=== PATIENT | male | born 1940 | race Caucasian/White ===

== ENCOUNTER → 2017-09-12 20:00 | Outpatient (CLI) | payer MEDICARE, OTHER, SELFPAY | PROVIDERS: Family Provider Family Medicine; PCP Family Medicine; Visit Provider Nurse Practitioner Acute Care | DX: G47.33 Obstructive sleep apnea (adult) (pediatric) (principal) | CPT/HCPCS: 95811 ==

== ENCOUNTER → 2019-12-22 07:31 | Outpatient (CLI) | payer MEDICARE, OTHER, SELFPAY ==
--- NOTE | 2019-12-22 07:35 | CT_ITS ---
STUDY: CT SCAN LOWER EXTREMITY RIGHT REASON FOR EXAM: Male, 79 years old. RT KNEE, EL, OSTEOARTHRITIS, LT TKR, HX-MELANOMA RT ARM, PROSTATE CA, HTN RADIATION DOSAGE (If Supplied By Facility): CTDIvol = ( 18.14 ) mGy, DLP = ( 1083.7 ) mGycm. Individualized dose optimization techniques were used for this CT.? TECHNIQUE: Multiple axial tomographic images of the right hip, right knee and right ankle were obtained. Coronal and sagittal reconstruction was obtained as well. COMPARISON: None. FINDINGS: Mild degree of the joint space narrowing at the right hip joint. There is evidence of bony spur in the superior lateral aspect of the acetabulum. Subchondral geodes are seen in the superior lateral portion of the acetabulum. Mild degree of degenerative spur formation is seen along the superior and inferior aspects of the femoral head. Marked degree of joint space narrowing involving the medial compartment of the knee joint with degenerative spur formation along the medial femoral condyle as well as the medial tibial plateau. Tiny joint effusion. There is evidence of a 3.4 cm x 2.5 cm soft tissue density in the popliteal fossa. This most likely represents a popliteal cyst. There is evidence of a 1.7 cm x 0.7 cm cyst in the distal metaphysis of the femur. The ankle joint is unremarkable. The ankle mortise is symmetrical. CT/Extremity Lower without Contra IMPRESSION: Marked degree of joint space narrowing involving the medial compartment of the knee joint. Small joint effusion. Popliteal cyst. 1.7 cm x 0.7 cm cyst is seen in distal metaphysis of the femur. Electronically Signed: Lorenzo Fink, at 10:01 EDT , Service support ,
== END ==
PROVIDERS: PCP Family Medicine; Referring Provider Orthopaedic Surgery; Visit Provider Orthopaedic Surgery
DX: M17.11 Unilateral primary osteoarthritis, right knee (principal)
CPT/HCPCS: 73700

== ENCOUNTER 2020-02-05 07:48 | Observation (INO) | payer MEDICARE, OTHER, SELFPAY ==
--- NOTE | 2020-01-25 09:06 | EKG12_ITS ---
Test Reason : PRE OP Blood Pressure : / mmHG Vent. Rate : 070 BPM Atrial Rate : 070 BPM P-R Int : 258 ms QRS Dur : 080 ms QT Int : 392 ms P-R-T Axes : 019 -11 -08 degrees QTc Int : 423 ms Sinus rhythm with 1st degree A-V block Otherwise normal ECG Confirmed by YUSEF GALAN, BANDAR ([id number]), index editor RICK MARIE ([id number]) on 01/26/2020 10:19:28 AM Referred By: Erickson Judd Confirmed By:BANDAR HOLBROOK MD
[2020-01-25 09:25] LABS: Absolute Lymphocyte Count 1.57 X10^3/uL (0.83-4.51); Basophil# 0.04 X10^3/uL; Basophil% 0.5 % (0-1); Eosinophil# 0.36 X10^3/uL; Eosinophils% 4.7 % (0-5); Hematocrit 40.6 % (40-54); Hemoglobin 13.6 g/dL (13.0-16.5); Lymphocyte # 1.57 X10^3/ul (4.0); Lymphocyte % 20.6 % (19-41); Mean Corp Hgb Conc 33.5 g/dL (32-36); Mean Corpuscular Hgb 30.9 pg (27.0-32.0); Mean Corpuscular Volume 92.3 fL (80-94); Monocyte# 0.63 X10^3/uL; Monocyte% 8.3 % (0-10); NRBC Flagged by Analyzer 0 % (0-5); Neutrophil # 4.99 X10^3/uL (2.7-7.7); Neutrophil % 65.6 % (47-70); Platelet Count 234 K/mm3 (150-450); RBC Distribution Width CV 12.7 % (11.6-14.6); RBC Distribution Width SD 43.2 fl (35.1-43.9); White Blood Count 7.6 K/mm3 (4.4-11.0)
[2020-01-25 09:52] LABS: Anion Gap 7 (5-15); BUN 18 mg/dL (7-18); BUN/Creat Ratio 18.6 RATIO (10-20); Calcium,Total 9.1 mg/dL (8.5-10.1); Chloride 105 mmol/L (98-107); Creatinine, Serum 0.97 mg/dL (0.70-1.30); EST Glomerular Filtration Rate 80 mL/min (>60); Est Glom Filt Rate - Afr Amer 97 mL/min (>60); Glucose 119 mg/dL (74-106); Sodium Level 138 mmol/L (136-145)
[2020-01-25 09:54] LABS: Magnesium 1.7 mg/dL (1.6-2.6)
[2020-02-05] VITALS (14 sets, daily range): BP systolic 109–144; BP diastolic 62–88; PULSE 58–74; RESP 16–18; TEMP 35.6–36.9; O2SAT 95–100; BMI 32.3; BMI 31.9
[2020-02-05 06:26] LABS: Bedside Glucose 103 mg/dL (70-110)
[2020-02-05] MEDS: Acetaminophen 500 MG Tablet 1000 MG PO ×3 (06:30→21:25)
[2020-02-05] MEDS: Gabapentin 600 MG Tablet PO ×2 (06:30)
[2020-02-05] MEDS: Lactated Ringers 1,000 ML 100 ML IV (07:30)
--- NOTE | 2020-02-05 07:30 | KNEE_PTH ---
PATIENT: NIKITA OLIVA LOC: MS3 U#:[id number] AGE/SX: 79/M [place] [facility] [place]: Dr. Erickson Judd DO : 1940 BED: 1 DIS: 02/06/2020 SPEC #: [id number] RECD: 02/05/20 09:48 STATUS: BEAU RELizzie #: [id number] FRANKLIN: 02/05/20 07:[address]: Erickson Judd DEPT: SURGICAL PATHOLOGY RECD BY: Jessica Caicedo ENTERED: 02/05/20 11:05 SP TYPE: TOTAL KNEE OTHR DR: Brendon Scherer PA-C [facility] Tissues: Knee, NOS Procedures: Decalcification bone/plaque Surgery Specimen Level IV HEADER OPERATION: Total knee replacement robotic arm assist PRE-OP DIAGNOSIS: Right knee osteoarthritis TISSUE SUBMITTED: Bone and tissue right knee MICROSCOPIC DIAGNOSIS Bone and tissue, right knee, total knee replacement/resection: Pieces of bone with degenerative osteoarthritic changes. Fibroadipose tissue, fibroconnective tissue and reactive synovial tissue. SREE:stanley 02/09 MICROSCOPIC DESCRIPTION Slides are reviewed. GROSS DESCRIPTION Received is one container designated bone and soft tissue right knee. The specimen consists of multiple fragments of valerio-yellow bone measuring in aggregate 10 x 10 x 3 cm. Also in the specimen container is a piece of indurated tissue measuring 6 x 1 x 1 cm. A number of bony fragments contain articular surfaces consistent with tibial plateau and femoral condyle and displaying prominent osteophyte formation and bone erosion. Attached to one of the pieces of soft tissue is a piece of bone measuring 3.5 x 2 x 0.5 cm. Stenotype Operator sections are submitted in two cassettes as follows: 1 - soft tissue, 2 - bone after decalcification. / SREE:stanley 02/05/20 TC:5 CPT: 53294, 61809
--- NOTE | 2020-02-05 09:03 | OP.PCM_ITS ---
Report of Operation Date of Procedure: 02/05/20 Pre-Operative Diagnosis: OA right knee Post-Operative Diagnosis: same Surgery/Procedure Performed:: Right TKR metalizing machine operator automatic: Brendon Scherer Type of Anesthesia:: Spinal Anesthesiologist: Sam Leon Specimen's removed: bone - Admit VTE Documentation VTE Present on Admission: No VTE Mechan Device Prophylaxis: SCD's, Thigh High AYSE Hose VTE Pharm Prophylaxis ordered?: Yes
--- NOTE | 2020-02-05 10:00 | RAD_ITS ---
STUDY: X-RAY - RIGHT KNEE REASON FOR EXAM: Male, 79 years old. POST OP TECHNIQUE: 2 view(s) of the knee. COMPARISON: None. FINDINGS: Normal visualized distal femur. Normal visualized proximal tibia and fibula. Normal proximal tibiofibular articulation. The patient is status post total knee replacement. There is good alignment. Postoperative soft tissue changes. RAD/Knee 1 or 2 Views IMPRESSION: The patient is status post total knee replacement. There is good alignment. Postoperative soft tissue changes. Electronically Signed: Lorenzo Fink, at 10:33 EST , Service support ,
[2020-02-05] MEDS: Lactated Ringers 1,000 ML 125 ML IV ×2 (10:17→11:26)
[2020-02-05 10:23] LABS: Hematocrit 37.6 % (40-54); Hemoglobin 12.2 g/dL (13.0-16.5); Mean Corp Hgb Conc 32.4 g/dL (32-36); Mean Corpuscular Hgb 30.7 pg (27.0-32.0); Mean Corpuscular Volume 94.5 fL (80-94); Mean Platelet Vol. 9.3 fl (6.2-12.0); Platelet Count 235 K/mm3 (150-450); RBC Distribution Width CV 12.4 % (11.6-14.6); RBC Distribution Width SD 42.8 fl (35.1-43.9); Red Blood Count 3.98 M/mm3 (4.6-6.2); White Blood Count 6.4 K/mm3 (4.4-11.0)
[2020-02-05 10:34] LABS: Anion Gap 4 (5-15); BUN 13 mg/dL (7-18); Calcium,Total 8.6 mg/dL (8.5-10.1); Chloride 107 mmol/L (98-107); Creatinine, Serum 0.81 mg/dL (0.70-1.30); EST Glomerular Filtration Rate 98 mL/min (>60); Est Glom Filt Rate - Afr Amer 118 mL/min (>60); Estimated Creatinine Clearance 73.89 ml/min; Glucose 133 mg/dL (74-106); Potassium 4.1 mmol/L (3.5-5.1); Sodium Level 140 mmol/L (136-145)
[2020-02-05] MEDS: Calcium (Elemental) 500 MG Tablet PO (16:31)
[2020-02-05] MEDS: Aspirin 81 MG TAB.CHEW PO (16:31)
[2020-02-05] MEDS: oxyCODONE 5 MG Tablet PO (19:06)
[2020-02-05] MEDS: 0.9% Saline Lock 10 ML Syringe IV (19:57)
[2020-02-05] MEDS: Senna/Docusate Sodium 1 Tablet 2 TABLET PO (21:25)
[2020-02-05] MEDS: Atorvastatin Calcium 10 MG Tablet PO (21:25)
[2020-02-06 00:19] VITALS: BP 118/76; PULSE 85; RESP 16; TEMP 37.5; O2SAT 96
[2020-02-06] MEDS: 0.9% Saline Lock 10 ML Syringe IV (00:26)
[2020-02-06 04:39] VITALS: BP 131/69; PULSE 83; RESP 16; TEMP 37.4; O2SAT 98
[2020-02-06] MEDS: oxyCODONE 5 MG Tablet PO ×2 (05:48→12:28)
[2020-02-06] MEDS: Acetaminophen 500 MG Tablet 1000 MG PO (05:48)
[2020-02-06 07:39] LABS: Hematocrit 37.2 % (40-54); Hemoglobin 12.3 g/dL (13.0-16.5); Mean Corp Hgb Conc 33.1 g/dL (32-36); Mean Corpuscular Hgb 30.5 pg (27.0-32.0); Mean Corpuscular Volume 92.3 fL (80-94); Platelet Count 235 K/mm3 (150-450); RBC Distribution Width CV 12.5 % (11.6-14.6); RBC Distribution Width SD 42.5 fl (35.1-43.9); Red Blood Count 4.03 M/mm3 (4.6-6.2)
[2020-02-06 07:40] VITALS: O2SAT 97
[2020-02-06 07:43] LABS: Anion Gap 7 (5-15); BUN 16 mg/dL (7-18); BUN/Creat Ratio 20.9 RATIO (10-20); Calcium,Total 8.4 mg/dL (8.5-10.1); Chloride 101 mmol/L (98-107); Creatinine, Serum 0.77 mg/dL (0.70-1.30); EST Glomerular Filtration Rate 105 mL/min (>60); Est Glom Filt Rate - Afr Amer 127 mL/min (>60); Estimated Creatinine Clearance 57.84 ml/min; Glucose 120 mg/dL (74-106); Potassium 4.3 mmol/L (3.5-5.1); Sodium Level 133 mmol/L (136-145)
[2020-02-06 08:00] VITALS: BP 126/73; PULSE 76; RESP 16; TEMP 37; O2SAT 98
[2020-02-06] MEDS: Losartan Potassium 25 MG Tablet PO (08:06)
[2020-02-06] MEDS: Multivitamins,Therapeutic Tablet 1 TABLET PO (08:06)
[2020-02-06] MEDS: Calcium (Elemental) 500 MG Tablet PO (08:06)
[2020-02-06] MEDS: Aspirin 81 MG TAB.CHEW PO (08:07)
[2020-02-06] MEDS: Pantoprazole Sodium 20 MG Tablet PO (08:07)
--- NOTE | 2020-02-06 08:13 | PN.ORTHO_ITS ---
Subjective: Patient sitting at bedside eating breakfast. Patient states pain is been very well managed. Patient denies chest pain, shortness of breath, calf pain, nausea vomiting. Patient has no other complaints and is ready for discharge home. Objective: Dressings clean dry intact. Negative signs and symptoms of DVT. Vital signs and labs reviewed noted in the medical record. Patient is afebrile. Patient is neurovascular otherwise intact. Patient is in no respiratory distress speaking in full sentences. - Physical Exam Vitals/I&O's: Vital Signs Temp Pulse Resp BP Pulse Ox 99.3 F H 83 16 131/69 H 97 02/06/20 04:39 02/06/20 04:39 02/06/20 04:39 02/06/20 04:39 02/06/20 07:40 Oxygen Flow Rate (L/min) 6 Oxygen Delivery Method Room Air Weight: 92.533 kg Body Mass Index (BMI) 31.9 Intake and Output for Last 24 Hours 02/04/20 02/05/20 02/06/20 23:59 23:59 23:59 Intake Total 2927.17 / 3127.17 554 / 554 Output Total 650 / 650 Balance 2927.17 / 3127.17 -96 / -96 General: Alert, Oriented x3, Cooperative HEENT: PERRLA Oral: Moist Mucosa Neurological: Cranial nerves II-XII grossly intact Psych/Mental Status: Normal Affect Microbiology Past 72 Hours 02/04/20 09:45 Interface Orders - Final Laboratory Results 02/05/20 10:13: WBC 6.4, RBC 3.98 L, Hgb 12.2 L, Hct 37.6 L, MCV 94.5 H, MCH 30.7, MCHC 32.4, RDW Std Deviation 42.8, RDW Coeff of Perez 12.4, Plt Count 235, MPV 9.3 02/05/20 10:13: Sodium 140, Potassium 4.1, Chloride 107, Carbon Dioxide 29.0, Anion Gap 4 L, BUN 13, Creatinine 0.81, Estim Creat Clear Calc 73.89, Est GFR (MDRD) Af Amer 118, Est GFR (MDRD) Non-Af 98, BUN/Creatinine Ratio 16.0, Glucose 133 H, Calcium 8.6 02/06/20 06:16: WBC 8.0, RBC 4.03 L, Hgb 12.3 L, Hct 37.2 L, MCV 92.3, MCH 30.5, MCHC 33.1, RDW Std Deviation 42.5, RDW Coeff of Perez 12.5, Plt Count 235, MPV 10.0 02/06/20 06:16: Sodium 133 L, Potassium 4.3, Chloride 101, Carbon Dioxide 25.0, Anion Gap 7, BUN 16, Creatinine 0.77, Estim Creat Clear Calc 57.84, Est GFR (MDRD) Af Amer 127, Est GFR (MDRD) Non-Af 105, BUN/Creatinine Ratio 20.9 H, Glucose 120 H, Calcium 8.4 L Current Medications Acetaminophen (Acetaminophen 500 Mg Tablet) 1,000 mg PO Q8 [facility] Last Admin: 02/06/20 05:48 Dose: 1,000 mg Documented by: Aspirin (Aspirin 81 Mg Tab.Chew) [facility] Admin: 02/06/20 08:07 Dose: 81 mg Documented by: Atorvastatin Calcium (Atorvastatin Calcium 10 Mg Tablet) [facility] Admin: 02/05/20 21:25 Dose: 10 mg Documented by: Balsalazide (Balsalazide Disodium 750 Mg Capsule) 1,500 mg PO BID [facility] Calcium Carbonate (Calcium (Elemental) 500 Mg Tablet) [facility] Last Admin: 02/06/20 08:06 Dose: 500 mg Documented by: Insulin Human Lispro (Insulin Lispro 100 Unit/Ml Insuln.Pen) 1 - 6 unit SC Q4H PRN PRN; Protocol PRN Reason: BG>/= 180, SEE PROTOCOL Losartan Potassium (Losartan Potassium 25 Mg Tablet) 25 mg PO DAILY [facility] Last Admin: 02/06/20 08:06 Dose: 25 mg Documented by: Multivitamins (Multivitamins,Therapeutic Tablet) [facility] Last Admin: 02/06/20 08:06 Dose: 1 tablet Documented by: Ondansetron HCl (Ondansetron 4 Mg/2 Ml Vial) 4 mg IV Q8H PRN PRN PRN Reason: NAUSEA Oxycodone HCl (Oxycodone 5 Mg Tablet) 5 - 10 mg PO Q4H PRN PRN PRN Reason: Pain Score 4-10 Last Admin: 02/06/20 05:48 Dose: 10 mg Documented by: Pantoprazole Sodium (Pantoprazole Sodium 20 Mg Tablet) 20 mg PO DAILY [facility] Last Admin: 02/06/20 08:07 Dose: 20 mg Documented by: Promethazine HCl (Promethazine 25 Mg/Ml Syringe) 12.5 mg IM Q6H PRN PRN; Protocol PRN Reason: NAUSEA/VOMITING Senna/Docusate Sodium (Senna/Docusate Sodium 1 Tablet) 2 tablet PO BID [facility] Last Admin: 02/06/20 08:10 Dose: Not Given Documented by: Sodium Chloride (0.9% Saline Lock 10 Ml Syringe) 10 - 40 ml IV UD PRN PRN Reason: SALINE FLUSH Last Admin: 02/06/20 00:26 Dose: 10 ml Documented by: Medical Necessity - Tobacco Use Smoking Status: Former smoker Tobacco Use: Non-smoker Assessment/Plan Status post right total knee arthroplasty Plan 1. Continue all pain medications as prescribed 2. Continue physical therapy today, weight-bear as tolerated with walker 3. Aspirin 81 mg 1 p.o. every 12 hours for 30 days for postop DVT prophylaxis 4. Encourage incentive spirometry 5. Patient will continue outpatient physical therapy at [facility] 6. Patient will follow up with Dr. Judd as scheduled, see pink sheet 7. Discharge home today after p.m. therapy
--- NOTE | 2020-02-06 08:19 | DCINST_ITS ---
Discharge Diet: No Restrictions Discharge Activity: May Not Drive, May Shower, Use Walker May shower in (days): 3 Ice area for (Minutes): 20 - each hour while awake. Weight Bearing Status: Weight bearing as tolerated Elevate: Operative Extremity Additional Activity Instructions:: Wear elastic stockings for 2 weeks after your surgery. Call your doctor if your incision/area has: Continuous Slow Oozing, Sudden Increased Bleeding, Increased Pain/ Swelling, Increased Redness, Foul Smelling Discharge Call your doctor if you observe: Fever of 101 or Higher, Coldness, Increased Pain - in extremity, Numbness or Tingling, Change in Color, Calf discomfort, Uncontrolled pain Change Dressing in (Days):: 0 - and daily as needed. Remove Dressing in (days):: 8 Cleanse incision/area with: Soap & Water Allergies/Adverse Reactions: Allergies bacitracin Allergy (Verified 02/05/20 06:22) Hives Penicillins Allergy (Verified 02/05/20 06:22) Nausea/Vom/Diarrhea Medications to take at Discharge Omeprazole [Prilosec] 20 mg PO DAILY 10/26/13 balsalazide 750 mg capsule 1,500 mg PO BID 05/25/17 calcium carbonate 500 mg calcium (1,250 mg) tablet 500 mg PO BID tab 05/25/17 losartan 25 mg tablet 25 mg PO QDAY 05/25/17 multivitamin 1 tab PO QDAY 05/25/17 simvastatin 20 mg tablet 20 mg PO QPM 05/25/17 Acetaminophen [Tylenol] 1,000 mg PO Q8 #90 tab 02/06/20 Aspirin [Aspirin, Baby] 81 mg PO BIDCM #60 tab.chew 02/06/20 Oxycodone [Oxyir] 5 - 10 mg PO Q4H PRN PRN 7 Days #84 tablet 02/06/20 Senna/Docusate Sodium [Senokot-S] 2 tablet PO BID tablet 02/06/20 The following prescriptions were given: Aspirin [Aspirin, Baby] 81 mg PO BIDCM #60 tab.chew Transmission Status: Pending to [facility] Oxycodone [Oxyir] 5 - 10 mg PO Q4H PRN PRN 7 Days #84 tablet PRN Reason: Pain Score 4-10 Transmission Status: Sent to [facility] Acetaminophen [Tylenol] 1,000 mg PO Q8 #90 tab Transmission Status: Pending to [facility] Care Physician: [facility] [Primary Care Provider] - Test Results: Test results from this visit will be discussed in further detail at your follow- up appointment, if applicable. Please Follow Up With: Erickson Judd, DO When: as scheduled( see pink sheet)
[2020-02-06] MEDS: BALSALAZIDE DISODIUM 750 MG CAPSULE 1500 MG PO (10:23)
[2020-02-06 13:25] VITALS: BP 135/80; PULSE 67; RESP 16; TEMP 37.2; O2SAT 96
== END 2020-02-06 13:34 | disposition home or self-care (01) ==
LOC: SDC 08:11 → MS3 08:11
PROVIDERS: Anesthesiology; Admitting Provider Orthopaedic Surgery; Referring Provider Orthopaedic Surgery; Visit Provider Orthopaedic Surgery
PROC: 0SRC0JZ Replacement of Right Knee Joint with Synthetic Substitute, Open Approach (ICD-10-PCS; CPT 27447; principal; 2020-02-05 07:00)
DX: M17.11 Unilateral primary osteoarthritis, right knee (principal); G47.30 Sleep apnea, unspecified; E78.00 Pure hypercholesterolemia, unspecified; I10 Essential (primary) hypertension; K21.9 Gastro-esophageal reflux disease without esophagitis; Z20.828 Contact with and (suspected) exposure to other viral communicable diseases; Z87.891 Personal history of nicotine dependence; Z79.899 Other long term (current) drug therapy; Z79.82 Long term (current) use of aspirin; Z85.820 Personal history of malignant melanoma of skin; Z85.46 Personal history of malignant neoplasm of prostate
CPT/HCPCS: 01400; 27447; 64447; S2900; 36415; 73560; 80048; 82962; 83735; 85025; 85027; 87077; 87081; 87426; 87635; 88305; 88311; 93005; 94762; 96361; 96365; 96366; 97116; 97162; 97166; 97535; 99218; 99251; C1776; C9803; J7120; A4216; G0378; G0379; G0463; U0003

== ENCOUNTER → 2020-11-16 09:57 | Outpatient (CLI) | payer MEDICARE, OTHER, SELFPAY ==
[2020-02-05 11:31] VITALS: BMI 31.9
[2020-11-16 12:48] LABS: Erythrocyte Sedimentation Rate 32 mm/hr (0-20)
[2020-11-16 12:51] LABS: Hematocrit 40.7 % (40-54); Hemoglobin 13.6 g/dL (13.0-16.5); Mean Corp Hgb Conc 33.4 g/dL (32-36); Mean Corpuscular Hgb 30.7 pg (27.0-32.0); Mean Corpuscular Volume 91.9 fL (80-94); Mean Platelet Vol. 9.5 fl (6.2-12.0); Platelet Count 331 K/mm3 (150-450); RBC Distribution Width CV 12.7 % (11.6-14.6); RBC Distribution Width SD 42.7 fl (35.1-43.9); Red Blood Count 4.43 M/mm3 (4.6-6.2); White Blood Count 7.5 K/mm3 (4.4-11.0)
[2020-11-16 12:58] LABS: ALB/GLOB Ratio 0.7 RATIO (0.9-2.4); AST(SGOT) 20 U/L (15-37); Alanine Aminotransfer ALT/SGPT 28 U/L (16-61); Albumin, Serum 3.6 g/dL (3.2-5.0); Alkaline Phosphatase 79 U/L (45-117); Anion Gap 6 (5-15); BUN 13 mg/dL (7-18); BUN/Creat Ratio 18.4 RATIO (10-20); CRP 4.28 mg/L (0.0-3.0); Calcium,Total 9.6 mg/dL (8.5-10.1); Chloride 103 mmol/L (98-107); EST Glomerular Filtration Rate 115 mL/min (>60); Est Glom Filt Rate - Afr Amer 139 mL/min (>60); Globulin 4.9 g/dL (2.2-4.2); Glucose 82 mg/dL (74-106); Potassium 4.2 mmol/L (3.5-5.1); Protein, Total 8.5 g/dL (6.4-8.2); Sodium Level 136 mmol/L (136-145)
== END ==
PROVIDERS: Referring Provider Internal Medicine Gastroenterology; Visit Provider Internal Medicine Gastroenterology
DX: K51.90 Ulcerative colitis, unspecified, without complications (principal)
CPT/HCPCS: 36415; 80053; 85027; 85652; 86140

== ENCOUNTER → 2020-12-01 15:19 | Outpatient (CLI) | payer MEDICARE, OTHER, SELFPAY ==
[2020-12-02 10:17] LABS: Hepatitis B Surface Antigen Non-Reactive (Nonreactive)
== END ==
PROVIDERS: Referring Provider Internal Medicine Gastroenterology; Visit Provider Internal Medicine Gastroenterology
DX: K51.90 Ulcerative colitis, unspecified, without complications (principal)
CPT/HCPCS: 36415; 86480; 87340

== ENCOUNTER → 2020-12-06 10:31 | Outpatient (CLI) | payer MEDICARE, OTHER, SELFPAY ==
[2020-12-10 05:07] LABS: QNTFERON TB Mitogen Value > 10.00 IU/mL (.); QNTFERON TB Nil Value 0.03 IU/mL (.); QNTFERON TB1+ Ag Value 0.07 IU/mL (.); QNTFERON TB2+ Ag Value 0.14 IU/mL (.)
[2020-12-10 13:59] LABS: QNTIFERON TB Positive Criteria Negative (Negative)
== END ==
PROVIDERS: Referring Provider Internal Medicine Gastroenterology; Visit Provider Internal Medicine Gastroenterology
DX: K51.90 Ulcerative colitis, unspecified, without complications (principal)
CPT/HCPCS: 86480

== ENCOUNTER → 2022-06-26 | Outpatient (CLI) | payer MEDICARE, OTHER, SELFPAY ==
[2022-06-26 18:14] LABS: Hematocrit 38.2 % (40-54); Hemoglobin 12.5 g/dL (13.0-16.5); Mean Corp Hgb Conc 32.7 g/dL (32-36); Mean Corpuscular Hgb 29.8 pg (27.0-32.0); Mean Platelet Vol. 10.5 fl (6.2-12.0); Platelet Count 268 K/mm3 (150-450); RBC Distribution Width CV 13.5 % (11.6-14.6); RBC Distribution Width SD 44.7 fl (35.1-43.9); White Blood Count 7.1 K/mm3 (4.4-11.0)
[2022-06-26 18:26] LABS: Erythrocyte Sedimentation Rate 17 mm/hr (0-20)
[2022-06-26 19:04] LABS: ALB/GLOB Ratio 0.8 RATIO (0.9-2.4); AST(SGOT) 25 U/L (15-37); Alanine Aminotransfer ALT/SGPT 23 U/L (16-61); Albumin, Serum 3.5 g/dL (3.2-5.0); Alkaline Phosphatase 61 U/L (45-117); Anion Gap 7 (5-15); BUN 21 mg/dL (7-18); BUN/Creat Ratio 28.3 RATIO (10-20); CRP < 2.90 mg/L (0.0-3.0); Calcium,Total 9.6 mg/dL (8.5-10.1); Chloride 104 mmol/L (98-107); Creatinine, Serum 0.74 mg/dL (0.70-1.30); EST Glomerular Filtration Rate 108 mL/min (>60); Est Glom Filt Rate - Afr Amer 131 mL/min (>60); Globulin 4.5 g/dL (2.2-4.2); Glucose 120 mg/dL (74-106); Potassium 3.9 mmol/L (3.5-5.1); Sodium Level 137 mmol/L (136-145)
== END | disposition home or self-care (01) ==
LOC: MTLAB 15:15
PROVIDERS: Referring Provider Internal Medicine Gastroenterology; Visit Provider Internal Medicine Gastroenterology
DX: K51.90 Ulcerative colitis, unspecified, without complications (principal)
CPT/HCPCS: 36415; 80053; 85027; 85652; 86140

== ENCOUNTER → 2022-06-28 | Outpatient (CLI) | payer MEDICARE, OTHER, SELFPAY ==
--- NOTE | 2022-06-28 09:10 | RAD_ITS ---
STUDY: X-RAY - ESOPHAGUS (BARIUM SWALLOW) WITH FLUOROSCOPY REASON FOR EXAM: Male, 81 years old. DYSPHAGIA TECHNIQUE: 14 view(s) of the esophagus were obtained following swallowing of barium. FLUOROSCOPY TIME (if supplied): (22 seconds) minutes/seconds. 16.28 mGy COMPARISON: None. FINDINGS: There is no demonstrated esophageal foreign body. There is no demonstrated stricture or mucosal abnormality. Normal gastroesophageal junction, without a demonstrated hiatal hernia. The patient ingested a 12 mm tablet of barium without any difficulty. There is atherosclerotic tortuosity of the aortic arch and descending thoracic aorta. Normal visualized pulmonary parenchyma. There are diffuse degenerative changes of the visualized thoracic spine. RAD/Esophagus Dual Contrast IMPRESSION: Normal plain film x-ray examination (barium swallow) of the esophagus. Electronically Signed: Lorenzo Fink MD at 11:08 EDT ,
== END | disposition home or self-care (01) ==
LOC: RAD 09:02
PROVIDERS: Referring Provider Internal Medicine Gastroenterology; Visit Provider Internal Medicine Gastroenterology
DX: R13.10 Dysphagia, unspecified (principal)
CPT/HCPCS: 74221

== ENCOUNTER → 2023-05-08 | Outpatient (CLI) | payer MEDICARE, OTHER, SELFPAY ==
--- NOTE | 2023-05-08 09:59 | MRI_ITS ---
STUDY: MRI BRAIN WITH AND WITHOUT CONTRAST (ATTENTION INTERNAL AUDITORY CANALS - I.A.C.''s) REASON FOR EXAM: Male, 82 years old. Left tinnitus. Attention IACs. TECHNIQUE: Standardized multiplanar fat and water weighted pulse sequences were obtained. 20 mL of IV Clariscan. was administered for the contrast portion of the examination. COMPARISON: None. FINDINGS: Normal bilateral temporal bones. Normal bilateral internal auditory canals. There is no demonstrated intracanalicular or cisternal vestibular schwannoma ( acoustic neuroma ). There is no enhancement of the bilateral VIIth or VIIIth cranial nerves. Normal bilateral cochlea, vestibules and semicircular canals. Normal size of the ventricles and extra-axial spaces for the patient''s age. Few T2 FLAIR hyperintensity foci in the posterior periatrial white matter are chronic white matter ischemic changes. Normal bilateral basal ganglia. Normal thalami. Normal flow voids within the major intracranial circulation suggesting patency by spin echo criteria. Normal venous enhancement. There is no enhancing intra-axial or extra-axial abnormality. There is no extra-axial fluid accumulation. Normal sella turcica, pituitary gland, infundibular stalk, optic chiasm and hypothalamus. Normal tectal plate and pineal gland. Normal midbrain, willam and medulla. Normal cerebellum. Normal basal cisterns. No demonstrated orbital abnormality, within the constraints of a routine brain study. Mucus retention cyst in the right maxillary sinus. Mild mucosal thickening of the right ethmoid sinus. Normal remaining paranasal sinuses. Normal calvarium and skull base. Normal visualized soft tissue structures. Normal visualized upper cervical spine. MRI/Brain W/WO Contrast IMPRESSION: Few chronic white matter changes in the posterior periatrial white matter of cerebral hemispheres otherwise negative unenhanced and enhanced MRI of the bilateral internal auditory canals (I.A.C''s). COMMENT: If tinnitus is objective pulsatile tinnitus rather than subjective pulsatile tinnitus and dural AV fistula is a clinical consideration, cerebral arteriogram with bilateral external carotid arteriogram will be more helpful for further evaluation. Electronically Signed: Scott Foreman MD at 12:31 EST ,
[2023-05-08 10:47] LABS: CREATININE FINGERSTICK < 1.0 mg/dL (0.70-1.30); EGFR FINGERSTICK > 60.0000 mL/min (>60)
--- OUTSIDE RECORDS SUMMARY | 2023-05-08 12:01 | XMS RPT_ITS | CCD ---
Author Name Unknown Address [address] [place] [address] Organization [facility] Care Team Providers Care Taker Off Drying [employer] Name Role Phone DeFinis, Harumi Y Unavailable Unavailable Yenyis, Harumi Y Unavailable Unavailable CHARLEE Velarde, Radhika Fishman Unavailable Unavailbea Santillan RN, Anette A Unavailable Unavailable Jacque DESHPANDE, Anette A Unavailable Unavailable Prachi, CHARLEE, Radhika Fishman Unavailable Unavailabl andrew Siegel, Hui Unavailable Unavailable CHARLEE Velarde, Radhika Fishman Unavailable Unavailabl e Douglas, Harumi Y Unavailable Unavailable Daniel Siegeli Unavailable Unavailable Bong Stewart Unavailable Unavailable MD Pedro, Dixon Kaur Unavailable Prachi, CHARLEE, Radhika Fishman Unavailable UnavailAraseli Mir Unavailable Unavailable Araseli Roy Unavailable Unavailable DeFinis, Harumi Y Unavailable Unavailable Siegel, Hui Unavailable Unavailable Douglas, Harumi Y Unavailable Unavailable Daniella Quintanilla Primary Care Provider MARIA ISABEL CEDENO Attending Unavailable DANIELLA QUINTANILLA Primary Care Unavaila MARIA ISABEL Lares Referring Unavailable DANIELLA QUINTANILLA Primary Care Unavaila DANIELLA Cruz Primary Care Unavaila morgan Baxter MD, Laz Ruiz Primary Care Provider Allergies Allergy Classification Reported Allergen(s) Allergy Type Date of Onset Reaction(s) Facility (20 sources) bacitracin; Translations: [BACITRACIN] drug allergy 10-08-2013 Hives [facility] Work Phone: (17 sources) penicillin drug allergy 10-08-2013 [facility] Work Phone: (7 sources) Penicillins; Translations: [PENICILLINS] Drug [facility] Completed/Discontinued Medications Medication Drug Class(es) Dates Sig (Normalized) Sig (Original) aspirin 81 mg delayed release oral tablet (20 sources) Nonsteroidal Anti-inflammatory Drug Start: 05-25-2019 take 1 tablet by mouth once daily aspirin, enteric coated (ASPIRIN, ENTERIC COATED) 81 mg EC tablet Take 81 mg by mouth once daily. 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] Resolved: 09-19-2016 10-09-2013 Chronic Genitourinary symptoms and ill-defined conditions (1 source) Urinary incontinence; Translations: [Other specified urinary incontinence] Chronic Other nutritional; endocrine; and metabolic disorders (15 sources) Body mass index (BMI) 32.0-32.9, adult; Translations: [Body mass index (BMI) 32.0-32.9, adult] Onset: 09-20-2016 09-20-2016 Chronic Other upper respiratory infections (2 sources) Sore throat symptom; Translations: [Acute pharyngitis, unspecified] Episodic Residual codes; unclassified (7 sources) Obstructive sleep apnea syndrome; Translations: [Obstructive sleep apnea (adult) (pediatric)] Onset: 11-01-2016 11-01-2016 Chronic Unclassified (7 sources) H/O: risk factor; Translations: [Other specified personal risk factors, not elsewhere classified] Onset: 11-01-2016 11-01-2016 Unclassified (1 source) Unknown / UNK(Unknown) Onset: 10-30-2016 Unclassified (5 sources) Long-term drug therapy; Translations: [Other shelter (current) drug therapy] Onset: 09-24-2016 09-24-2016 Past or Other Problems Problem Classification Problem Date Documented Da te Episodic/Chronic Coma, stupor, brain damage (11 sources) Daytime somnolence; Translations: [Somnolence] Onset: 7 09-24-2016 Episodic Deficiency and other anemia (20 sources) Anemia; Translations: [Anemia, unspecified] Resolved: 7 10-09-2013 Episodic Gastrointestinal hemorrhage (20 sources) Hematochezia; Translations: [Melena] Resolved: 7 09-19-2016 Episodic Nonspecific chest pain (17 sources) Chest pain; Translations: [Chest pain, unspecified] Onset: 7 09-19-2016 Episodic Other aftercare (6 sources) Other termite technician (current) drug therapy; Translations: [Other termite technician (current) drug therapy] Onset: 7 09-24-2016 Episodic Other circulatory disease (17 sources) Electrocardiogram abnormal; Translations: [Abnormal electrocardiogram [ECG] [EKG]] Onset: 7 09-19-2016 Episodic Other lower respiratory disease (7 sources) Dyspnea; Translations: [Shortness of breath] Onset: 7 11-01-2016 Episodic Residual codes; unclassified (7 sources) Family history of ischemic heart disease and other diseases of the circulatory system; Translations: [Family history of ischemic heart disease and other diseases of the circulatory system] Onset: 7 09-19-2016 Episodic Unclassified (17 sources) H/O: asbestos exposure; Translations: [Family history of ischemic heart disease and other diseases of the circulatory system] Onset: 7 11-01-2016 Episodic Unclassified (1 source) R30.0 R31.21 Onset: 7 Results Test Name Value Interpretation Reference Range Facil ity Vital Signs Date Time Vital Sign Value Performing Clinician Facility 06-12-2022 09:01-0400 Body height 172.7 cm Maria Isabel [employer] Work Phone: [facility] 06-12-2022 09:01-0400 Body temperature 97.7 [degF] Maria Isabel [employer] Work Phone: [facility] 06-12-2022 09:01-0400 Body weight 94.35 kg Maria Isabel [employer] Work Phone: [facility] 06-12-2022 09:01-0400 Diastolic blood pressure 72 mm[Hg] Maria Isabel BEE-C Work Phone: [facility] 06-12-2022 09:01-0400 Heart rate 64 /min Maria Isabel Cedeno PA-C Work Phone: [facility] 06-12-2022 09:01-0400 Respiratory rate 16 /min Maria Isabel Cedeno PA-C Work Phone: [facility] 06-12-2022 09:01-0400 SaO2% (BldA) [Mass fraction] 99 % Maria Isabel Cedeno PA-C Work Phone: [facility] 06-12-2022 09:01-0400 Systolic blood pressure 120 mm[Hg] Maria Isabel Cedeno PA-C Work Phone: [facility] 05-11-2022 13:29-0500 Body temperature 101.19 [degF] Lee Ovidio SALES CENTER ASSOCIATE.RN RESIDENTIAL Work Phone: [facility] 05-11-2022 13:29-0500 Body weight 96.53 kg Lee Ovidio SALES CENTER ASSOCIATE.RN RESIDENTIAL Work Phone: [facility] 05-11-2022 13:29-0500 Diastolic blood pressure 78 mm[Hg] Lee Ovidio SALES CENTER ASSOCIATE.RN RESIDENTIAL Work Phone: [facility] 05-11-2022 13:29-0500 Heart rate 75 /min Lee Ovidio SALES CENTER ASSOCIATE.RN RESIDENTIAL Work Phone: [facility] 05-11-2022 13:29-0500 Respiratory rate 18 /min Lee Ovidio SALES CENTER ASSOCIATE.RN RESIDENTIAL Work Phone: [facility] 05-11-2022 13:29-0500 SaO2% (BldA) [Mass fraction] 96 % Lee Ovidio SALES CENTER ASSOCIATE.RN RESIDENTIAL Work Phone: [facility] 05-11-2022 13:29-0500 Systolic blood pressure 112 mm[Hg] Lee Ovidio SALES CENTER ASSOCIATE.RN RESIDENTIAL Work Phone: [facility] 11-06-2016 08:01-0400 BMI (Body Mass Index) 32.03 kg/m2 [facility] Work Phone: 11-06-2016 08:01-0400 BP Diastolic 70 mm[Hg] [facility] Work Phone: 11-06-2016 08:01-0400 BP Systolic 120 mm[Hg] [facility] Work Phone: 11-06-2016 08:01-0400 Height 172.72 cm [facility] Work Phone: 11-06-2016 08:01-0400 Pulse (Heart Rate) 72 /min [facility] Work Phone: 11-06-2016 08:01-0400 Respiratory Rate 20 /min [facility] Work Phone: 11-06-2016 08:01-0400 Weight 95.57 kg [facility] Work Phone: 11-01-2016 06:01-0400 BMI (Body Mass Index) 32.54 kg/m2 Araseli Roy [facility] Work Phone: 11-01-2016 06:01-0400 Body Temperature 97.4 [degF] Araseli Roy [facility] Work Phone: 11-01-2016 06:01-0400 BP Diastolic 87 mm[Hg] Araseli Roy [facility] Work Phone: 11-01-2016 06:01-0400 BP Systolic 155 mm[Hg] [facility]aseli [facility] Work Phone: 11-01-2016 06:01-0400 Height 172.72 cm Araseli Roy [facility] Work Phone: 11-01-2016 06:01-0400 Pulse (Heart Rate) 58 /min Araseli Roy [facility] Work Phone: 11-01-2016 06:01-0400 Respiratory Rate 18 /min Araseli Roy [facility] Work Phone: 11-01-2016 06:01-0400 Weight 97.07 kg [facility] Work Phone: 09-20-2016 09:51-0400 BMI (Body Mass Index) 32.23 kg/m2 [facility] Work Phone: 09-20-2016 09:51-0400 BP Diastolic 82 mm[Hg] Hui Siegel [facility] Work Phone: 09-20-2016 09:51-0400 BP Systolic 156 mm[Hg] Hui Siegel [facility] Work Phone: 09-20-2016 09:51-0400 Height 172.72 cm [facility] Work Phone: 09-20-2016 09:51-0400 Pulse (Heart Rate) 64 /min Hui Siegel [facility] Work Phone: 09-20-2016 09:51-0400 Pulse Oximetry 98 % [facility] Work Phone: 09-20-2016 09:51-0400 Respiratory Rate 18 /min [facility] Work Phone: 09-20-2016 09:51-0400 Weight 96.16 kg [facility] Work Phone: 10-08-2013 14:35-0400 BMI (Body Mass Index) 33.23 kg/m2 Radhika Velarde RN [facility] Work Phone: 10-08-2013 14:35-0400 Body Temperature 99 [degF] [facility] Work Phone: 10-08-2013 14:35-0400 BP Diastolic 61 mm[Hg] [facility] Work Phone: 10-08-2013 14:35-0400 BP Systolic 136 mm[Hg] [facility] Work Phone: 10-08-2013 14:35-0400 BSA (Body Surface Area) 2.12 m2 CHARLEE [facility] Work Phone: 10-08-2013 14:35-0400 Height 172.72 cm CHARLEE [facility] Work Phone: 10-08-2013 14:35-0400 Pulse (Heart Rate) 74 /min [facility] Work Phone: 10-08-2013 14:35-0400 Respiratory Rate 14 /min [facility] Work Phone: 10-08-2013 14:35-0400 Weight 99.16 kg CHARLEE [facility] Work Phone: Encounters Encounter Date Encounter Type Care Provider Facility Start: 06-12-2022 End: 06-12-2022 ambulatory MARIA ISABEL CEDENO Facility:[facility] Start: 06-12-2022 End: 06-12-2022 Patient encounter procedure Maria Isabel Cedeno PA-C Work Phone: Urology Procedures Date Procedure Procedure Detail Performing Clinician Start: 06-12-2022 Urnls dip stick/tabl et rgnt auto w/o microscopy Maria Isabel Cedeno PA-C Work Phone: Start: 05-11-2022 STREP A MOLECULAR (POC) [facility] Provider Start: 11-06-2016 End: 11-06-2016 Dietary management education, guidance, and counseling Hui Siegel Start: 11-06-2016 End: 11-06-2016 DJN Avni Berrios [employer] Work Phone: Start: 11-06-2016 End: 11-06-2016 Follow Up Appt 6 months Avni Berrios FINANCIAL WELLNESS COACH Work Phone: Start: 11-05-2016 End: 11-06-2016 *Hepatic Function Panel Dixon Vasquez MD Work Phone: Start: 11-05-2016 End: 11-06-2016 Lipid panel [AGGREGATE] Dixon Vasquez MD Work Phone: Start: 11-01-2016 End: 11-01-2016 Dietary management education, guidance, and counseling Araseli Roy Start: 09-20-2016 End: 09-20-2016 Dietary management education, guidance, and counseling Radhika Velarde RN Start: 09-20-2016 End: 09-21-2016 *Hepatic Function Panel Dixon Vasquez MD Work Phone: Start: 09-20-2016 End: 10-30-2016 Complete sleep workup (PSG,CPAP as indicated) & Follow up Dixon Vasquez MD Work Phone: Start: 09-20-2016 End: 09-20-2016 DJN Dixon Vasquez MD Work Phone: Start: 09-20-2016 End: 10-09-2016 Echocardiography Dixon Vasquez MD Work Phone: Start: 09-20-2016 End: 09-20-2016 Follow Up Appt 1 month Dixon Vasquez MD Work Phone: Start: 09-20-2016 End: 09-21-2016 Lipid panel [AGGREGATE] Dixon Vasquez MD Work Phone: Start: 09-20-2016 End: 10-25-2016 Stress Echocardiogram - Dobutamine Dixon Vasquez MD Work Phone: Start: 01-18-2009 SURGICAL PATHOLOGY, CONVERTED Jorge L Leary Sean Work Phone: Start: 01-09-2007 SURGICAL PATHOLOGY, CONVERTED Daniella Sanford MD Work Phone: Start: 11-28-2005 SURGICAL PATHOLOGY, CONVERTED Daniella Sanford MD Work Phone: Plan of Treatment Date Care Activity Detail Author Start: 06-13-2023 End: 08-13-2023 Prostate specific Ag [Mass/volume] in Serum or Plasma PSA/PROSTSPECAG DIAG Lab Routine Malignant neoplasm of prostate (HCC) Expected: 06/13/2023 (Approximate), Expires: 08/13/2023 [facility] Work Phone: Immunizations Immunization Date Immunization Notes Care Provider Fa cili 12-30-2020 influenza virus vacc ine, unspecified formulation Daniella Sanford MD Work Phone: [facility] Payers Date Payer Category Payer [employer] ( and others) [id number] 2003 Unknown FOR LIFE [id number] 2003-Present [phone] [address] [place] [address] Indemnity [id number] 2003 Medicare [id number] 2003 Medicare MEDICARE MEDICAR E A AND B [id number] 2003-Present [phone] [address] [address] [place] [address] Medicare [id number] 2003 Medicare [id number] Social History Date Type Detail Facility Start: 05-11-2022 Tobacco smoking status ILIS Ex-smoke r [facility] History of tobacco use Current smoker [facility] Start: 05-11-2022 Tobacco use and exposure Smoke less tobacco non-user [facility] Start: 05-11-2022 End: 06-12-2022 Alcohol intake Current drinker of alcohol (finding) [facility] Start: 03-05-2020 End: 05-11-2022 Alcohol intake [facility] Start: 06-11-2019 History SDOH Alcohol Frequency 1 [facility] Start: 06-13-2021 Alcohol Comment Beer, whisky or wine [facility] Start: 1940 Sex Assigned At Not on file C [facility] Tobacco smoking status ILIS Toba tobacco packer smoking consumption unknown [facility] Start: 06-11-2019 End: 03-05-2020 Alcohol Use Disorder Identification Test - Consumption [AUDIT-C] [facility] How often to you hav e a drink containing alcohol? Never [facility] Average Number of Drinks Not on file [facility] Start: 06-03-2021 End: 06-13-2021 Exposure to SARS-CoV-2 (event) Not sure [facility] Progress note 06-12-2022 Note Date & Type Note Facility 06-12-2022 Note HNO ID: [id number] Author: Maria Isabel Cedeno PA-C Service: ? Author Type: Physician Personnel Assistant Type: Progress Notes Filed: 06/12/2022 10:40 AM Note Text: [facility] ESTABLISHED PATIENT CLINIC NOTE Some elements copied from his previous note, which have been updated where appropriate, and all reflect current medical decision making from date of this visit. SERVICE DATE: 06/12/2022 SERVICE TIME: 9:34 AM NAME: Nikita Oliva CHIEF COMPLAINT: PSA Follow-up HISTORY OF PRESENT ILLNESS: Nikita Oliva is a 81 year old male an established patient following up for CAP follow up with PSA The patient reports no new concerns or urinary symptoms and his PSA remains undetectable at <0.02 Will continue to follow up with PSA annually - orders placed LUTS: Other symptoms: LABS: No results found for: HCT PSA (ng/mL) Date Value 05/28/2022 <0.02 05/23/2021 <0.02 06/29/2020 <0.03 03/02/2020 <0.03 PSA Screening (ng/mL) Date Value 09/29/2019 <0.03 No results found for: TESTOST PSA (ng/mL) Date Value 05/28/2022 <0.02 05/23/2021 <0.02 06/29/2020 <0.03 03/02/2020 <0.03 PSA Screening (ng/mL) Date Value 09/29/2019 <0.03 No results found for: CREAT MEDICATIONS: aspirin, enteric coated (ASPIRIN, ENTERIC COATED) 81 mg EC tablet Take 81 mg by mouth once daily. balsalazide (COLAZAL) 750 mg capsule Take by mouth three times daily. Three capsules three times daily calcium carbonate 600 mg-cholecalciferol 200 units 600 mg(1,500mg) -200 unit tab 1 tablet once daily. REFRESH TEARS 0.5 % drop Use 1 Drop in both eyes as needed. losartan (COZAAR) 25 mg tablet Take 25 mg by mouth once daily. fluticasone (FLONASE) 50 mcg/actuation nasal spray Use 2 Sprays in each nostril once daily. Rinse mouth after use. (Patient not taking: No sig reported) multivitamin (MULTIPLE VITAMIN ESSENTIAL ORAL) q 24 HR. (Patient not taking: No sig reported) ferrous sulfate 325 mg (65 mg iron) tablet q 24 HR. (Patient not taking: No sig reported) ketoconazole (NIZORAL) 2 % cream (Patient not taking: No sig reported) omega 9-vmi-pzi-fish oil 300-1,000 mg cpDR fish oil FISH OIL CAPS One tablet by mouth daily OMEGA-3 FATTY ACIDS CAPS [phone] Radhika Velarde RN 09-19-2016 [facility] ([id number]) (Patient not taking: No sig reported) omeprazole (PRILOSEC) 20 mg capsule Take 20 mg by mouth once daily. 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) Melanoma (HCC) Prostate cancer (HCC) PAST SURGICAL HISTORY: PAST SURGICAL HISTORY Procedure Laterality Date ANESTH OPEN/SURG ARTHRS TOTAL KNEE ARTHROPLASTY Left 2006 REMOVAL GALLBLADDER 1988 FAMILY HISTORY: FAMILY HISTORY Problem Relation Age of Onset No Known Problems Mother Heart Attack Father Diabetes Sister Diabetes Brother Diabetes Brother Diabetes Brother No Known Problems Maternal Grandmother No Known Problems Maternal Grandfather No Known Problems Paternal Grandmother No Known Problems Paternal Grandfather SOCIAL HISTORY: Social Connections: Not on file REVIEW OF SYSTEMS: GENERAL: No fever, chills, weight loss, or fatigue. All other systems reviewed and are negative PHYSICAL EXAMINATION: Blood pressure 120/72, pulse 64, temperature 36.5 ?C (97.7 ?F), temperature source Temporal, resp. rate 16, height 172.7 cm (5' 8 ), weight 94.3 kg (208 lb), SpO2 99 %. GENERAL: WNL nutrition, no deformities, healthy appearing PROBLEM LIST REVIEW: Yes LABS: Results for orders placed or performed in visit on 06/12/22 UA DIP, URINE (POC) Result Value Ref Range GLUCOSE UA (POCT) Negative Negative mg/dL BILIRUBIN UA (POCT) Negative Negative KETONE UA (POCT) Negative Negative mg/dL SPECIFIC GRAVITY UA (POCT) 1.025 1.005 - 1.030 HEMOGLOBIN/BLOOD UA (POCT) Negative Negative PH UA (POCT) 5.5 4.5 - 8.0 PROTEIN UA (POCT) Negative Negative mg/dL UROBILINOGEN UA (POCT) 0.2 Normal E.U./dL NITRITE UA (POCT) Negative Negative LEUKOCYTES UA (POCT) Negative Negative COLOR UA (POCT) Yellow CLARITY UA (POCT) Clear PROCEDURES: PVR: 0 ml IMAGING: IMPRESSION/PLAN: 81 year old male with 1. Malignant neoplasm of prostate (HCC) - ICD9: 185, ICD10: C61 (primary diagnosis) 2. Other specified urinary incontinence - ICD9: 788.39, ICD10: N39.498 > PSA <0.02 > 1 year Appt w/ BRAVO Meng MT, PA-C with PSA prior BRAVO Abraham MT, PA-C [facility] Progress note 06-12-2022 Note Date & Type Note Facility 06-12-2022 Note HNO ID: [id number] Author: Maura Quiroz LPN Service: ? Author Type: ? Type: Progress Notes Filed: 06/12/2022 10:40 AM Note Text: Verified name and date of . CC Post Void Residual HPI: Nikita Oliva is a 81 year old male. The patient is here now for an appointment with BRAVO Abraham MT, PA-COV. Procedure: Explained procedure to patient and verbalizes understanding. Performed a PVR. Patient urinated and instructed to empty bladder as much as possible just prior to having PVR done using bladder ultrasound scanner. Results of scan: 0 mL The patient tolerated the procedure well. Plan: Appointment with Maria Isabel. [facility] Instructions 06-12-2022 Patient Instructions Note Date & Type Note Facility 06-12-2022 Instructions Maria Isabel Cedeno PA-C - 06/12/2022 9:36 AM EDT > 1 year Appt BRAVO Davis MT, PA-C with PSA prior documented in this encounter [facility] History of Present illness Narrative 06-12-2022 Maria Isabel Cedeno PA-C - 06/12/2022 9:31 AM EDTMaura Quiroz LPN - 06/12/2022 9:01 AM EDT Note Date & Type Note Facility 06-12-2022 History of Presen t illness Narrative Images from the original note were not included. [facility] ESTABLISHED PATIENT CLINIC NOTE Some elements copied from his previous note, which have been updated where appropriate, and all reflect current medical decision making from date of this visit. SERVICE DATE: 06/12/2022 SERVICE TIME: 9:34 AM NAME: Nikita Oliva CHIEF COMPLAINT: PSA Follow-up HISTORY OF PRESENT ILLNESS: Nikita Oliva is a 81 year old male an established patient following up for CAP follow up with PSA The patient reports no new concerns or urinary symptoms and his PSA remains undetectable at <0.02 Will continue to follow up with PSA annually - orders placed LUTS: Other symptoms: LABS: No results found for: HCT PSA (ng/mL) Date Value 05/28/2022 <0.02 05/23/2021 <0.02 06/29/2020 <0.03 03/02/2020 <0.03 PSA Screening (ng/mL) Date Value 09/29/2019 <0.03 No results found for: TESTOST PSA (ng/mL) Date Value 05/28/2022 <0.02 05/23/2021 <0.02 06/29/2020 <0.03 03/02/2020 <0.03 PSA Screening (ng/mL) Date Value 09/29/2019 <0.03 No results found for: CREAT MEDICATIONS: aspirin, enteric coated (ASPIRIN, ENTERIC COATED) 81 mg EC tablet Take 81 mg by mouth once daily. balsalazide (COLAZAL) 750 mg capsule Take by mouth three times daily. Three capsules three times daily calcium carbonate 600 mg-cholecalciferol 200 units 600 mg(1,500mg) -200 unit tab 1 tablet once daily. REFRESH TEARS 0.5 % drop Use 1 Drop in both eyes as needed. losartan (COZAAR) 25 mg tablet Take 25 mg by mouth once daily. fluticasone (FLONASE) 50 mcg/actuation nasal spray Use 2 Sprays in each nostril once daily. Rinse mouth after use. (Patient not taking: No sig reported) multivitamin (MULTIPLE VITAMIN ESSENTIAL ORAL) q 24 HR. (Patient not taking: No sig reported) ferrous sulfate 325 mg (65 mg iron) tablet q 24 HR. (Patient not taking: No sig reported) ketoconazole (NIZORAL) 2 % cream (Patient not taking: No sig reported) omega 7-dms-dof-fish oil 300-1,000 mg cpDR fish oil FISH OIL CAPS One tablet by mouth daily OMEGA-3 FATTY ACIDS CAPS [phone] Radhika Velarde RN 09-19-2016 [facility] ([id number]) (Patient not taking: No sig reported) omeprazole (PRILOSEC) 20 mg capsule Take 20 mg by mouth once daily. 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) Melanoma (HCC) Prostate cancer (HCC) PAST SURGICAL HISTORY: PAST SURGICAL HISTORY Procedure Laterality Date ANESTH OPEN/SURG ARTHRS TOTAL KNEE ARTHROPLASTY Left 2007 REMOVAL GALLBLADDER 1988 FAMILY HISTORY: FAMILY HISTORY Problem Relation Age of Onset No Known Problems Mother Heart Attack Father Diabetes Sister Diabetes Brother Diabetes Brother Diabetes Brother No Known Problems Maternal Grandmother No Known Problems Maternal Grandfather No Known Problems Paternal Grandmother No Known Problems Paternal Grandfather SOCIAL HISTORY: Social Connections: Not on file REVIEW OF SYSTEMS: GENERAL: No fever, chills, weight loss, or fatigue. All other systems reviewed and are negative PHYSICAL EXAMINATION: Blood pressure 120/72, pulse 64, temperature 36.5 C (97.7 F), temperature source Temporal, resp. rate 16, height 172.7 cm (5' 8 ), weight 94.3 kg (208 lb), SpO2 99 %. GENERAL: WNL nutrition, no deformities, healthy appearing PROBLEM LIST REVIEW: Yes LABS: Results for orders placed or performed in visit on 06/12/22 UA DIP, URINE (POC) Result Value Ref Range GLUCOSE UA (POCT) Negative Negative mg/dL BILIRUBIN UA (POCT) Negative Negative KETONE UA (POCT) Negative Negative mg/dL SPECIFIC GRAVITY UA (POCT) 1.025 1.005 - 1.030 HEMOGLOBIN/BLOOD UA (POCT) Negative Negative PH UA (POCT) 5.5 4.5 - 8.0 PROTEIN UA (POCT) Negative Negative mg/dL UROBILINOGEN UA (POCT) 0.2 Normal E.U./dL NITRITE UA (POCT) Negative Negative LEUKOCYTES UA (POCT) Negative Negative COLOR UA (POCT) Yellow CLARITY UA (POCT) Clear PROCEDURES: PVR: 0 ml IMAGING: IMPRESSION/PLAN: 81 year old male with 1. Malignant neoplasm of prostate (HCC) - ICD9: 185, ICD10: C61 (primary diagnosis) 2. Other specified urinary incontinence - ICD9: 788.39, ICD10: N39.498 > PSA <0.02 > 1 year Appt w/ BRAVO Meng MT, PA-C with PSA prior BRAVO Abraham MT, PA-C Verified name and date of . CC Post Void Residual HPI: Nikita Oliva is a 81 year old male. The patient is here now for an appointment with BRAVO Abraham MT, PA-COV. Procedure: Explained procedure to patient and verbalizes understanding. Performed a PVR. Patient urinated and instructed to empty bladder as much as possible just prior to having PVR done using bladder ultrasound scanner. Results of scan: 0 mL The patient tolerated the procedure well. Plan: Appointment with Maria Isabel. documented in this encounter [facility] Note 05-12-2022 Telephone Encounter - Mariel Warner - 05/12/2022 9:35 AM ESTTelephone Encounter - Lee Nolan APRN.CNP - 05/12/2022 8:27 AM EST Note Date & Type Note Facility 05-12-2022 Miscellaneous Notes Formattin g of this note might be different from the original. Patient given results and verbalized understanding of instructions given. Mariel Warner Please notify positive for covid. Is to contact pcp and notify. ou tested positive for COVID-19. Follow the CDC guidelines for isolation: 1. Everyone, regardless of vaccination status, should stay home for 5 days. 2. If you have no symptoms or your symptoms are resolving after 5 days, you can leave your house. 3. Continue to wear a mask around others for 5 additional days. If you have a fever, continue to stay home until your fever resolves, even if it is longer than 5 days. You may be eligible for additional treatments for COVID-19. Please call our office as soon as possible to schedule a virtual visit to discuss your eligibility for antiviral or monoclonal antibody therapy. Please monitor your symptoms, and for any worrisome symptoms, call your primary care provider or schedule a visit with [facility]. A test is not recommended to return to work/school when meeting the above criteria. documented in this encounter [facility] Progress note 05-11-2022 Note Date & Type Note Facility 05-11-2022 Note HNO ID: [id number] Author: Lee Nolan APRN.RACHEAL Service: ? Author Type: Nurse Practitioner Type: Progress Notes Filed: 05/11/2022 2:47 PM Note Text: Subjective HPI HPI Nikita Oliva is a 81 year old male who presents today for CC of cough, cold, fever, body aches, h/a. This started 2 days ago. Has tried otc medication for relief. Symptoms are worsened by nothing. Risk factors sick exposures recently. Had all covid vaccines. .Patient presents with: Cough: Cough, fatigue, St, congestion, bodyaches and PARKS x 5 days PAST MEDICAL HISTORY Diagnosis Date Agent Jones poisoning Malignant neoplasm of prostate (HCC) Melanoma (HCC) Prostate cancer (HCC) PAST SURGICAL HISTORY Procedure Laterality Date ANESTH OPEN/SURG ARTHRS TOTAL KNEE ARTHROPLASTY Left 2006 REMOVAL GALLBLADDER 1987 ALLERGIES Bacitracin and Penicillins MEDICATIONS aspirin, enteric coated (ASPIRIN, ENTERIC COATED) 81 mg EC tablet balsalazide (COLAZAL) 750 mg capsule calcium carbonate 600 mg-cholecalciferol 200 units 600 mg(1,500mg) -200 unit tab Calcium Carbonate / Cholecalciferol CALCIUM + D3 600-200 MG-UNIT TABS One tablet by mouth twice daily CALCIUM CARB-CHOLECALCIFEROL [id number] Tobias Scruggs [facility] ([id number]) losartan (COZAAR) 25 mg tablet omeprazole (PRILOSEC) 20 mg capsule fluticasone (FLONASE) 50 mcg/actuation nasal spray Use 2 Sprays in each nostril once daily. Rinse mouth after use. (Patient not taking: Reported on 06/13/2021 ) multivitamin (MULTIPLE VITAMIN ESSENTIAL ORAL) q 24 HR. (Patient not taking: Reported on 06/13/2021 ) REFRESH TEARS 0.5 % drop (Patient not taking: Reported on 06/13/2021 ) ferrous sulfate 325 mg (65 mg iron) tablet q 24 HR. (Patient not taking: Reported on 05/11/2022) ketoconazole (NIZORAL) 2 % cream (Patient not taking: Reported on 06/13/2021 ) omega 2-ycq-dji-fish oil (FISH OIL) 300-1,000 mg cpDR fish oil FISH OIL CAPS One tablet by mouth daily OMEGA-3 FATTY ACIDS CAPS [id number] Radhika Velarde RN 09-19-2014 [facility] ([id number]) (Patient not taking: Reported on 06/13/2021) simvastatin (ZOCOR) 40 mg tablet (Patient not taking: Reported on 05/11/2022) FAMILY HISTORY Problem Relation Age of Onset No Known Problems Mother Heart Attack Father Diabetes Sister Diabetes Brother Diabetes Brother Diabetes Brother No Known Problems Maternal Grandmother No Known Problems Maternal Grandfather No Known Problems Paternal Grandmother No Known Problems Paternal Grandfather Social History Tobacco Use Smoking status: Former Smokeless tobacco: Never Vaping Use Vaping Use: Never used Substance Use Topics Alcohol use: Yes Alcohol/week: 7.0 standard drinks Types: 7 Glasses of Wine (5oz) per week Comment: Beer, whisky or wine Drug use: Not Currently Review of Systems Constitutional: Positive for chills, fever and malaise/fatigue. HENT: Positive for congestion and sore throat. Negative for ear pain and nosebleeds. Respiratory: Positive for cough. Negative for shortness of breath and wheezing. Cardiovascular: Negative for chest pain. Gastrointestinal: Positive for diarrhea (5 days ago for 1 day). Negative for vomiting. Musculoskeletal: Negative for neck pain. Skin: Negative for itching and rash. Neurological: Positive for headaches. Objective Blood pressure 112/78, pulse 75, temperature (!) 38.4 ?C (101.2 ?F), temperature source Tympanic, resp. rate 18, weight 96.5 kg (212 lb 12.8 oz), SpO2 96 %. Physical Exam Constitutional: General: He is not in acute distress. Appearance: He is not toxic-appearing or diaphoretic. HENT: Head: Normocephalic and atraumatic. Nose: Nose normal. Mouth/Throat: Pharynx: Uvula midline. Posterior oropharyngeal erythema present. No pharyngeal swelling, oropharyngeal exudate or uvula swelling. Eyes: General: Lids are normal. No scleral icterus. Right eye: No discharge. Left eye: No discharge. Conjunctiva/sclera: Conjunctivae normal. Pupils: Pupils are equal, round, and reactive to light. Neck: Trachea: Trachea normal. Cardiovascular: Rate and Rhythm: Normal rate and regular rhythm. Heart sounds: Normal heart sounds. Pulmonary: Effort: Pulmonary effort is normal. Breath sounds: Normal breath sounds. Musculoskeletal: Cervical back: Normal range of motion and neck supple. Lymphadenopathy: Cervical: No cervical adenopathy. Right cervical: No superficial cervical adenopathy. Left cervical: No superficial cervical adenopathy. Skin: Findings: No rash. Neurological: Mental Status: He is alert and oriented to person, place, and time. ASSESSMENT/PLAN: 1. URI, acute - ICD9: 465.9, ICD10: J06.9 (primary diagnosis) - Discussed viral etiology and rationale for treatment. - Symptomatic treatment with prn analgesia - Supportive care with fluids and rest - Follow up in 3-5 days if symptoms persist or sooner if worsening of symptoms -If you (more content not included)... [facility] History of Present illness Narrative 05-11-2022 Lee Nolan APRN.RN RESIDENTIAL - 05/11/2022 2:43 PM EST Note Date & Type Note Facility 05-11-2022 History of Presen t illness Narrative Subjective HPI HPI Nikita Oliva is a 81 year old male who presents today for CC of cough, cold, fever, body aches, h/a. This started 2 days ago. Has tried otc medication for relief. Symptoms are worsened by nothing. Risk factors sick exposures recently. Had all covid vaccines. .Patient presents with: Cough: Cough, fatigue, St, congestion, bodyaches and PARKS x 5 days PAST MEDICAL HISTORY Diagnosis Date Agent Jones poisoning Malignant neoplasm of prostate (HCC) Melanoma (HCC) Prostate cancer (HCC) PAST SURGICAL HISTORY Procedure Laterality Date ANESTH OPEN/SURG ARTHRS TOTAL KNEE ARTHROPLASTY Left 2007 REMOVAL GALLBLADDER 1987 ALLERGIES Bacitracin and Penicillins MEDICATIONS aspirin, enteric coated (ASPIRIN, ENTERIC COATED) 81 mg EC tablet balsalazide (COLAZAL) 750 mg capsule calcium carbonate 600 mg-cholecalciferol 200 units 600 mg(1,500mg) -200 unit tab Calcium Carbonate / Cholecalciferol CALCIUM + D3 600-200 MG-UNIT TABS One tablet by mouth twice daily CALCIUM CARB-CHOLECALCIFEROL [id number] Tobias Scruggs [facility] ([id number]) losartan (COZAAR) 25 mg tablet omeprazole (PRILOSEC) 20 mg capsule fluticasone (FLONASE) 50 mcg/actuation nasal spray Use 2 Sprays in each nostril once daily. Rinse mouth after use. (Patient not taking: Reported on 06/13/2021 ) multivitamin (MULTIPLE VITAMIN ESSENTIAL ORAL) q 24 HR. (Patient not taking: Reported on 06/13/2021 ) REFRESH TEARS 0.5 % drop (Patient not taking: Reported on 06/13/2021 ) ferrous sulfate 325 mg (65 mg iron) tablet q 24 HR. (Patient not taking: Reported on 05/11/2022) ketoconazole (NIZORAL) 2 % cream (Patient not taking: Reported on 06/13/2021 ) omega 6-xva-oyy-fish oil (FISH OIL) 300-1,000 mg cpDR fish oil FISH OIL CAPS One tablet by mouth daily OMEGA-3 FATTY ACIDS CAPS [id number] Radhika Velarde RN 09-19-2014 [facility] ([id number]) (Patient not taking: Reported on 06/13/2021) simvastatin (ZOCOR) 40 mg tablet (Patient not taking: Reported on 05/11/2022) FAMILY HISTORY Problem Relation Age of Onset No Known Problems Mother Heart Attack Father Diabetes Sister Diabetes Brother Diabetes Brother Diabetes Brother No Known Problems Maternal Grandmother No Known Problems Maternal Grandfather No Known Problems Paternal Grandmother No Known Problems Paternal Grandfather Social History Tobacco Use Smoking status: Former Smokeless tobacco: Never Vaping Use Vaping Use: Never used Substance Use Topics Alcohol use: Yes Alcohol/week: 7.0 standard drinks Types: 7 Glasses of Wine (5oz) per week Comment: Beer, whisky or wine Drug use: Not Currently Review of Systems Constitutional: Positive for chills, fever and malaise/fatigue. HENT: Positive for congestion and sore throat. Negative for ear pain and nosebleeds. Respiratory: Positive for cough. Negative for shortness of breath and wheezing. Cardiovascular: Negative for chest pain. Gastrointestinal: Positive for diarrhea (5 days ago for 1 day). Negative for vomiting. Musculoskeletal: Negative for neck pain. Skin: Negative for itching and rash. Neurological: Positive for headaches. Objective Blood pressure 112/78, pulse 75, temperature (!) 38.4 C (101.2 F), temperature source Tympanic, resp. rate 18, weight 96.5 kg (212 lb 12.8 oz), SpO2 96 %. Physical Exam Constitutional: General: He is not in acute distress. Appearance: He is not toxic-appearing or diaphoretic. HENT: Head: Normocephalic and atraumatic. Nose: Nose normal. Mouth/Throat: Pharynx: Uvula midline. Posterior oropharyngeal erythema present. No pharyngeal swelling, oropharyngeal exudate or uvula swelling. Eyes: General: Lids are normal. No scleral icterus. Right eye: No discharge. Left eye: No discharge. Conjunctiva/sclera: Conjunctivae normal. Pupils: Pupils are equal, round, and reactive to light. Neck: Trachea: Trachea normal. Cardiovascular: Rate and Rhythm: Normal rate and regular rhythm. Heart sounds: Normal heart sounds. Pulmonary: Effort: Pulmonary effort is normal. Breath sounds: Normal breath sounds. Musculoskeletal: Cervical back: Normal range of motion and neck supple. Lymphadenopathy: Cervical: No cervical adenopathy. Right cervical: No superficial cervical adenopathy. Left cervical: No superficial cervical adenopathy. Skin: Findings: No rash. Neurological: Mental Status: He is alert and oriented to person, place, and time. ASSESSMENT/PLAN: 1. URI, acute - ICD9: 465.9, ICD10: J06.9 (primary diagnosis) - Discussed viral etiology and rationale for treatment. - Symptomatic treatment with prn analgesia - Supportive care with fluids and rest - Follow up in 3-5 days if symptoms persist or sooner if worsening of symptoms -If you experience chest pain/shortness of breath go to ER - INFLUENZA A&B MOLECULAR (POC) - flu negative. - 2019 CORONAVIRUS 2. Sore throat - ICD9: 462, ICD10: J02.9 Testing negative, as above. - ALERE STREP A TEST (AG) Lee Nolan APRN.RACHEAL documented in this encounter [facility] Instructions 05-11-2022 Patient Instructions Note Date & Type Note Facility 05-11-2022 Instructions Lee Nolan APRN.RACHEAL - 05/11/2022 2:23 PM EST FACT SHEET FOR PATIENTS, PARENTS, AND CAREGIVERS EMERGENCY USE AUTHORIZATION (EUA) OF PAXLOVID FOR CORONAVIRUS DISEASE 2019 (COVID-19) You are being given this Fact Sheet because your healthcare provider believes it is necessary to provide you with PAXLOVID for the treatment of oike-wk-gdxomdsf coronavirus disease (COVID-19) caused by the SARS-CoV-2 virus. This Fact Sheet contains information to help you understand the risks and benefits of taking the PAXLOVID you have received or may receive. The [place].S. Food and Drug Administration (FDA) has issued an Emergency Use Authorization (EUA) to make PAXLOVID available during the COVID-19 pandemic (for more details about an EUA please see What is an Emergency Use Authorization? at the end of this document). PAXLOVID is not an FDA-approved medicine in the [place]. Read this Fact Sheet for information about PAXLOVID. Talk to your healthcare provider about your options or if you have any questions. It is your choice to take PAXLOVID. What is COVID-19? COVID-19 is caused by a virus called a coronavirus. You can get COVID-19 through close contact with another person who has the virus. COVID-19 illnesses have ranged from very yhoi-yw-bvxvvb, including illness resulting in . While information so far suggests that most COVID-19 illness is mild, serious illness can happen and may cause some of your other medical conditions to become worse. Older people and people of all ages with severe, long lasting (chronic) medical conditions like heart disease, lung disease, and diabetes, for example seem to be at higher risk of being hospitalized for COVID-19. What is PAXLOVID? PAXLOVID is an investigational medicine used to treat kixo-ib-mvvpzbni COVID-19 in adults and children [12 years of age and older weighing at least 88 pounds (40 kg)] with positive results of direct SARS-CoV-2 viral testing, and who are at high risk for progression to severe COVID-19, including hospitalization or . PAXLOVID is investigational because it is still being studied. There is limited information about the safety and effectiveness of using PAXLOVID to treat people with urbh-kn-clhugspv COVID-19. The FDA has authorized the emergency use of PAXLOVID for the treatment of uaqy-ny-wqwwvqlk COVID-19 in adults and children [12 years of age and older weighing at least 88 pounds (40 kg)] with a positive test for the virus that causes COVID-19, and who are at high risk for progression to severe COVID-19, including hospitalization or , under an EUA. 1 Revised: 16 June 2021 What should I tell my healthcare provider before I take PAXLOVID? Tell your healthcare provider if you: Have any allergies Have liver or kidney disease Are or plan to become Are a child Have any serious illnesses Tell your healthcare provider about all the medicines you take, including prescription and cwik-ahh-gxhbikk medicines, vitamins, and herbal supplements. Some medicines may interact with PAXLOVID and may cause serious side effects. Keep a list of your medicines to show your healthcare provider and pharmacist when you get a new medicine. You can ask your healthcare provider or pharmacist for a list of medicines that interact with PAXLOVID. Do not start taking a new medicine without telling your healthcare provider. Your healthcare provider can tell you if it is safe to take PAXLOVID with other medicines. Tell your healthcare provider if you are taking combined hormonal contraceptive. PAXLOVID may affect how your control pills work. Females who are able to become should use another effective alternative form of contraception or an additional barrier method of contraception. Talk to your healthcare provider if you have any questions about contraceptive methods that might be right for you. How do I take PAXLOVID? PAXLOVID consists of 2 medicines: nirmatrelvir and ritonavir. Take 2 pink tablets of nirmatrelvir with 1 white tablet of ritonavir by mouth 2 times each day (in the morning and in the evening) for 5 days. For each dose, take all 3 tablets at the same time. If you have kidney disease, talk to your healthcare provider. You may need a different dose. Swallow the tablets whole. Do not chew, break, or crush the tablets. Take PAXLOVID with or without food. Do not stop taking PAXLOVID without talking to your healthcare provider, even if you feel better. If you miss a dose of PAXLOVID within 8 hours of the time it is usually taken, take it as soon as you remember. If you miss a dose by more than 8 hours, skip the missed dose and take the next dose at your regular time. Do not take 2 doses of PAXLOVID at the same time. If you take too much PAXLOVID, call your healthcare provider or go to the nearest hospital emergency room right away. If you are taking a ritonavir-or cobicistat-containing medicine to treat hepatitis C or Human Immunodeficiency Virus (HIV), you should continue to take your medicine as prescribed by your healthcare provider. Talk to your healthcare provider if you do not feel better or if you feel worse after 5 days. Who should generally not take PAXLOVID? Do not take PAXLOVID if: You are allergic to nirmatrelvir, ritonavir, or any of the ingredients in PAXLOVID You are taking any of the following medicines: Alfuzosin Pethidine, propoxyphene Ranolazine Amiodarone, dronedarone, flecainide, propafenone, quinidine Colchicine Lurasidone, pimozide, clozapine Dihydroergotamine, ergotamine, methylergonovine Lovastatin, simvastatin Sildenafil (Revatio ) for pulmonary arterial hypertension (PAH) Triazolam, oral midazolam Apalutamide Carbamazepine, phenobarbital, phenytoin Rifampin Seven s Wort (hypericum perforatum) Taking PAXLOVID with these medicines may cause serious or life-threatening side effects or affect how PAXLOVID works. These are not the only medicines that may cause serious side effects if taken with PAXLOVID. PAXLOVID may increase or decrease the levels of multiple other medicines. It is very important to tell your healthcare provider about all of the medicines you are taking because additional laboratory tests or changes in the dose of your other medicines may be necessary while you are taking PAXLOVID. Your healthcare provider may also tell you about specific symptoms to watch out for that may indicate that you need to stop or decrease the dose of some of your other medicines. What are the important possible side effects of PAXLOVID? Possible side effects of PAXLOVID are: Allergic Reactions. Allergic reactions can happen in people taking PAXLOVID, even after only 1 dose. Stop taking PAXLOVID and call your healthcare provider right away if you get any of the following symptoms of an allergic reaction: hives trouble swallowing or breathing swelling of the mouth, lips, or face throat tightness hoarseness skin rash Liver Problems. Tell your healthcare provider right away if you have any of these signs and symptoms of liver problems: loss of appetite, yellowing of your skin and the whites of eyes (jaundice), dark-colored urine, pale colored stools and itchy skin, stomach area (abdominal) pain. Resistance to HIV Medicines. If you have untreated HIV infection, PAXLOVID may lead to some HIV medicines not working as well in the future. Other possible side effects include: altered sense of taste diarrhea high blood pressure muscle aches These are not all the possible side effects of PAXLOVID. Not many people have taken PAXLOVID. Serious and unexpected side effects may happen. PAXLOVID is still being studied, so it is possible that all of the risks are not known at this time. What other treatment choices are there? Veklury (remdesivir) is FDA-approved for the treatment of znip-op-alheefpk COVID-19 in certain adults and children. Talk with your doctor to see if Veklury is appropriate for you. Like PAXLOVID, FDA may also allow for the emergency use of other medicines to treat people with COVID-19. Go to https://www.fda.gov/hjtwkfcqx-ghjhbjxmygwk-i ndresponse/ddk-xivvy-icwkukofng-rur-ozsixm-t ramework/vioukwmqi-taa-lbovuugtyvdha for information on the emergency use of other medicines that are authorized by FDA to treat people with COVID-19. Your healthcare provider may talk with you about clinical trials for which you may be eligible. It is your choice to be treated or not to be treated with PAXLOVID. Should you decide not to receive it or for your child not to receive it, it will not change your standard medical care. What if I am or ? There is forensic economist treating women or mothers with PAXLOVID. For a mother and unborn baby, the benefit of taking PAXLOVID may be greater than the risk from the treatment. If you are , discuss your options and specific situation with your healthcare provider. It is recommended that you use effective barrier contraception or do not have sexual activity while taking PAXLOVID. If you are , discuss your options and specific situation with your healthcare provider. How do I report side effects with PAXLOVID? Contact your healthcare provider if you have any side effects that bother you or do not go away. Report side effects to [employer] at www.fda.gov/medBlue Roostertch or call 3-953-NPB8459 or you can report side effects to [employer] at the contact information provided below. Website Fax number Telephone number [employer] How should I store PAXLOVID? Store PAXLOVID tablets at room temperature, between 68?F to 77?F (20?C to 25?C). How can I learn more about COVID-19? Ask your healthcare provider. Visit https://www.cdc.gov/COVID19. Contact your local or state public health department. What is an Emergency Use Authorization (EUA)? The [place] FDA has made PAXLOVID available under an emergency access mechanism called an Emergency Use Authorization (EUA). The EUA is supported by a Order Management Specialist of Health and Human Service (HHS) declaration that circumstances exist to justify the emergency use of drugs and biological products during the COVID-19 pandemic. PAXLOVID for the treatment of wbts-bu-vnatdjhu COVID-19 in adults and children [12 years of age and older weighing at least 88 pounds (40 kg)] with positive results of direct SARS-CoV-2 viral testing, and who are at high risk for progression to severe COVID-19, including hospitalization or , has not undergone the same type of review as an FDA-approved product. In issuing an EUA under the COVID-19 public health emergency, the FDA has determined, among other things, that based on the total amount of scientific evidence available including data from adequate and well-controlled clinical trials, if available, it is reasonable to believe that the product may be effective for diagnosing, treating, or preventing COVID-19, or a serious or life-threatening disease or condition caused by COVID-19; that the known and potential benefits of the product, when used to diagnose, treat, or prevent such disease or condition, outweigh the known and potential risks of such product; and that there are no adequate, approved, and available alternatives. All of these criteria must be met to allow for the product to be used in the treatment of patients during the COVID-19 pandemic. The EUA for PAXLOVID is in effect for the duration of the COVID-19 declaration justifying emergency use of this product, unless terminated or revoked (after which the products may no longer be used under the EUA). Additional Information For general questions, visit the website or call the telephone number provided below. Website Telephone number [email or web address] ([phone]) You can also go to [email or web address] or call for more information. Pfizer Distributed by [employer] [place] [address] [id number] Revised: 16 June 2021 documented in this encounter [facility] Evaluation note Note Date & Type Note Facility documented in this encounter [facility] Evaluation note Note Date & Type Note Facility documented in this encounter [facility] Summary Purpose Family History No Family History Records FoundNo Family History Records Found Advance Directives No Advanced Directives Records FoundNo Advanced Directives Records Found Health Concerns Infection Onset Date Last Indicated Resolved Time COVID-19 Confirmed 05/11/2022 05/11/2022 Infection Onset Date Last Indicated Resolved Time COVID-19 Rule-Out 11/25/2020 11/25/2020 11/26/2020 6:37 AM EDT COVID-19 Confirmed 05/11/2022 05/11/2022 02/20/202 3 8:51 PM EST Additional Source Comments (unrecognized sect ion and content) No Status Records FoundNo Status Records Found INFORMATION SOURCE (unrecogn ized section and content) DATE CREATED AUTHOR AUTHOR'S NED PENA 06/13/2022 [facility] Source Comments (unrecognize d section and content) In the event this informatio n is protected by the Federal Confidentiality of Alcohol and Drug Abuse Patient Records regulations: The Federal rules restrict any use of the information to criminally investigate or prosecute any alcohol or drug abuse patient.[facility] the event this information is protected by the Federal Confidentiality of Alcohol and Drug Abuse Patient Records regulations: The Federal rules restrict any use of the information to criminally investigate or prosecute any alcohol or drug abuse patient.[facility] the event this information is protected by the Federal Confidentiality of Alcohol and Drug Abuse Patient Records regulations: The Federal rules restrict any use of the information to criminally investigate or prosecute any alcohol or drug abuse patient.[facility] the event this information is protected by the Federal Confidentiality of Alcohol and Drug Abuse Patient Records regulations: The Federal rules restrict any use of the information to criminally investigate or prosecute any alcohol or drug abuse patient.[facility] the event this information is protected by the Federal Confidentiality of Alcohol and Drug Abuse Patient Records regulations: The Federal rules restrict any use of the information to criminally investigate or prosecute any alcohol or drug abuse patient.[facility] the event this information is protected by the Federal Confidentiality of Alcohol and Drug Abuse Patient Records regulations: The Federal rules restrict any use of the information to criminally investigate or prosecute any alcohol or drug abuse patient.[facility] Reason for Visit (unrecogniz ed section and content) Reason Comments Results Reason Comments Follow Up Care Teams (unrecognized sec tion and content) T[employer] Relationship Specialty Start Date End Date Daniella Quintanilla [id number] [place] [address] PCP - General Podiatry 11/25/20 [employer] Relationship Specialty Start Date End Date Laz Baxter MD PCP - General Family Medicine 10/28/13 11/24/20 Daniella Quintanilla [address] [place] [address] PCP - General Podiatry 11/25/20 FOR RECORDS PERTAINING TO PATIENTS WHO ARE OR HAVE BEEN ENROLLED IN A CHEMICAL DEPENDENCY/SUBSTANCEABUSE PROGRAM, SOME INFORMATION MAY BE OMITTED. This clinical summary was aggregated from multiple sources. Caution should be exercised in using it in the provision of clinical care. This summary normalizes information from multiple sources, and as a consequence, information in this document may materially change the coding, format and clinical context of patient data. In addition, data may be omitted in some cases. CLINICAL DECISIONS SHOULD BE BASED ON THE PRIMARY CLINICAL RECORDS. [employer] [facility]. provides no warranty or guarantee of the accuracy or completeness of information in this document.
== END | disposition home or self-care (01) ==
LOC: MRI 09:50
PROVIDERS: Referring Provider Otolaryngology; Visit Provider Otolaryngology
DX: H93.12 Tinnitus, left ear (principal)
CPT/HCPCS: 70553; A9575

== ENCOUNTER → 2024-04-27 | Outpatient (CLI) | payer MEDICARE, OTHER, SELFPAY ==
[2024-04-27 17:48] LABS: Absolute Lymphocyte Count 2.08 X10^3/uL (0.83-4.51); Basophil# 0.07 X10^3/uL; Basophil% 0.9 % (0-1); Eosinophils% 9.2 % (0-5); Hematocrit 39.1 % (40-54); Lymphocyte # 2.08 X10^3/ul (0.83-4.51); Lymphocyte % 27.4 % (19-41); Mean Corp Hgb Conc 33.2 g/dL (32-36); Mean Corpuscular Hgb 31.6 pg (27.0-32.0); Mean Corpuscular Volume 95.1 fL (80-94); Monocyte% 9.2 % (0-10); NRBC Flagged by Analyzer 0 % (0-5); Neutrophil # 4.02 X10^3/uL (2.7-7.7); Neutrophil % 52.9 % (47-70); Platelet Count 206 K/mm3 (150-450); RBC Distribution Width CV 12.2 % (11.6-14.6); RBC Distribution Width SD 42.6 fl (35.1-43.9); Red Blood Count 4.11 M/mm3 (4.6-6.2); White Blood Count 7.6 K/mm3 (4.4-11.0)
[2024-04-27 17:59] LABS: ALB/GLOB Ratio 0.8 RATIO (0.9-2.4); AST(SGOT) 22 U/L (15-37); Alanine Aminotransfer ALT/SGPT 24 U/L (16-61); Albumin, Serum 3.7 g/dL (3.2-5.0); Alkaline Phosphatase 50 U/L (45-117); Anion Gap 9 (5-15); BUN 27 mg/dL (7-18); BUN/Creat Ratio 30.8 RATIO (10-20); Calcium,Total 9.7 mg/dL (8.5-10.1); Chloride 105 mmol/L (98-107); Cholesterol 185 mg/dL (200); Creatinine, Serum 0.88 mg/dL (0.70-1.30); EST Glomerular Filtration Rate 88 mL/min (>60); Est Glom Filt Rate - Afr Amer 107 mL/min (>60); Globulin 4.5 g/dL (2.2-4.2); Glucose 104 mg/dL (74-106); High Density Lipoprotein 73 mg/dL; Protein, Total 8.2 g/dL (6.4-8.2); Sodium Level 138 mmol/L (136-145); Triglycerides 150 mg/dL; Very Low Density Lipoprotein 30 mg/dL (5-40)
== END | disposition home or self-care (01) ==
LOC: MTLAB 14:18
PROVIDERS: Referring Provider Family Medicine; Visit Provider Family Medicine
DX: I10 Essential (primary) hypertension (principal)
CPT/HCPCS: 36415; 80053; 80061; 85025

== ENCOUNTER → 2024-11-16 | Outpatient (CLI) | payer MEDICARE, OTHER, SELFPAY ==
[2024-11-16 13:03] LABS: AST(SGOT) 27 U/L (<=37); Alanine Aminotransfer ALT/SGPT 19 U/L (<=46); Albumin, Serum 4.3 g/dL (3.4-4.8); Alkaline Phosphatase 53 U/L (40-129); Anion Gap 12 (5-15); BUN 17 mg/dL (4-19); BUN/Creat Ratio 25.0 RATIO (10-20); Calcium,Total 9.7 mg/dL (7.6-11.0); Carbon Dioxide 24.2 mmol/L (21.0-32.0); Chloride 104 mmol/L (98-108); Globulin 3.6 g/dL (2.2-4.2); Glucose 114 mg/dL (70-99); Potassium 4.3 mmol/L (3.3-5.1)
== END | disposition home or self-care (01) ==
LOC: MFPLAB 10:19
PROVIDERS: Nurse Practitioner Family; Visit Provider Family Medicine
DX: Z13.1 Encounter for screening for diabetes mellitus (principal)
CPT/HCPCS: 36415; 80053